=== PATIENT | male | born 1975 | race Caucasian/White ===

== ENCOUNTER 2017-12-15 10:35 | Inpatient (IN) ==
[2017-12-15] MEDS ORDERED: 0.9 % Sodium Chloride 1,000 ML IVC ONE (10:42)
[2017-12-15] MEDS ORDERED: cefTRIAXone 1,000 MG in Water for inj. (sterile) 20 ML 10 ML IVP ONE (10:42)
[2017-12-15] MEDS ORDERED: Pantoprazole 80 MG in 0.9 % Sodium Chloride 50 ML IVPB ONE (10:42)
[2017-12-15] MEDS ORDERED: Octreotide 50 MCG/ML SYRINGE IVP ONE (10:42)
[2017-12-15] MEDS ORDERED: Octreotide 400 MCG in 0.9 % Sodium Chloride 100 ML IVC SCH (10:45)
--- NOTE | 2017-12-15 10:55 | Emergency Department Note ---
Disposition Clinical Impression: Nausea and vomiting Pancreatitis Qualifiers: Chronicity: acute Pancreatitis type: unspecified pancreatitis type Acute pancreatitis complication: unspecified Qualified Code(s): K85.90 - Acute pancreatitis without necrosis or infection, unspecified Disposition: Admitted As Inpatient Condition: Fair Time of Disposition: 13:59 GI Bleed HPI - General Chief complaint: ED GI Bleed Stated complaint: "vomiting blood,bloody stool" Time Seen by Provider: 12/15/17 10:42 Source: patient Mode of arrival: ambulatory Limitations: no limitations Nursing Notes Reviewed: Yes Vital Signs Reviewed: Yes - History of Present Illness HPI Narrative: Patient presents to the ED if the chief complaint of abdominal pain. Patient states he started with left lower quadrant abdominal pain. 3 days ago. Has been sharp, stabbing and crampy. Started having profuse bloody diarrhea last night and into this morning. States that he did have one episode of fecal incontinence today because he could not make it to the bathroom in time. Reports he came to the ER for this and started feeling sick at her stomach went to the bathroom and threw up some pink frothy material that he states may have had blood in it. Denies any history of acid reflux or any NSAID use. No history of diverticulitis in the past. Does not drink heavily. Does smoke. Takes Zoloft, but no other medications. States the pain is localized in his left lower quadrant and has not radiated. No new back pain, but does have chronic back pain from a slipped disc. Has chronic tingling in his legs, but nothing worse than usual. No difficulty with ambulation. No known fevers. No rash, chest pain or shortness breath. - Related Data Home Medications Medication Instructions Recorded Confirmed Sertraline [Zoloft] 100 mg PO DAILY 12/15/17 12/15/17 Previous Rx's Medication Instructions Recorded Gabapentin [Neurontin] 300 mg PO TID #20 capsule 12/30/16 Cyclobenzaprine [Flexeril] 10 mg PO TID PRN #15 tablet 01/22/17 Allergies Allergy/AdvReac Type Severity Reaction Status Date / Time hydrocodone Allergy Hives Verified 12/15/17 10:38 naproxen Allergy Hives Verified 12/15/17 10:38 Sulfa (Sulfonamide Allergy Itching Verified 12/15/17 10:38 Antibiotics) sulfamethoxazole Allergy Itching Verified 12/15/17 10:38 [From Bactrim] tramadol [From Ultram] Allergy Hives Verified 12/15/17 10:38 trimethoprim [From Bactrim] Allergy Itching Verified 12/15/17 10:38 Review of Systems: As reviewed in the HPI. All other systems reviewed are negative or normal. Past Medical History - Past Medical History Attestation: Yes The following information was validated with the patient. Source: patient Medical history: Reports: no medical history Surgical history: Reports: other Psychiatric history: Reports: anxiety, depression - Social History Smoking Status: Current some day smoker Smokeless Tobacco Status: No Alcohol use: Reports: none Drug use: Reports: none Physical Exam - General Limitations: no limitations General appearance: alert, in no apparent distress - Head Head exam: atraumatic, normocephalic, normal inspection - Eye Eye exam: Present: normal appearance, PERRL, EOMI - ENT ENT exam: normal exam, normal oropharynx, mucous membranes moist, other (. No blood in the oropharynx) - Neck Neck exam: Present: normal inspection, full ROM, trachea midline - Chest Chest inspection: Present: normal inspection, symmetric chest wall rise - Respiratory Respiratory exam: Present: normal lung sounds bilaterally - Cardiovascular Cardiovascular exam: Present: regular rate, normal rhythm, normal heart sounds - Abdominal Exam Abdominal exam: Present: soft, tenderness, guarding, hyperactive bowel sounds. Absent: distention, rebound, rigidity Abdominal tenderness: Present: LLQ, moderate, severe - Extremities Exam Extremities exam: Present: normal inspection, full ROM. Absent: tenderness, pedal edema - Neurological Exam Neurological exam: Present: alert, oriented X3 - Psychiatric Psychiatric exam: Present: normal affect, normal mood - Skin Skin exam: Present: warm, dry, intact, normal color Course Course Narrative: Patient presenting with significant left lower quadrant pain. Concerned over perforated diverticulitis due to his abdominal exam. We will get a stat CT abdomen and pelvis without contrast and labs. Patient will be reevaluated. Vitals stable. - Reevaluation(s) Reevaluation #1: CT scan did not show any perforation or diverticulitis. He noted that the pancreas is normal, although I do note some stranding surrounding it. His lipase is elevated. His pain has not been well under control after Dilaudid and is still nauseated. We will admit him to the hospitalist service for pancreatitis. Patient be nothing by mouth. Continue IV fluids. patient refused rectal exam, will await BM which he has NOT had since arrival. No rectal bleeding. Vital Signs Temperature 97.6 F 12/15/17 10:38 Pulse Rate 90 12/15/17 10:38 Respiratory Rate 20 12/15/17 10:38 Blood Pressure 122/84 12/15/17 10:38 O2 Sat by Pulse Oximetry 95 12/15/17 10:38 Temperature 97.6 F 12/15/17 11:16 Pulse Rate 75 12/15/17 13:19 Respiratory Rate 18 12/15/17 13:19 Blood Pressure 123/80 12/15/17 13:19 O2 Sat by Pulse Oximetry 97 12/15/17 13:19 Oxygen Delivery Oxygen Delivery Room Air GI Bleed - Medical Records Medical records reviewed: Yes I reviewed the patient's medical records. - Lab Data Lab results reviewed: Yes I reviewed the patient's lab results. Result diagrams: 12/15/17 11:01 12/15/17 11:01 Lab Results 12/15/17 12/15/17 12/15/17 Range/Units 11:01 11:01 11:01 WBC 10.9 (4.3-11.1) K/mcL RBC 5.02 (4.19-5.50) M/mcL Hgb 16.1 (12.9-16.9) g/dL Hct 44.7 (37.5-50.1) % MCV 89.0 (83.0-100.0) fL MCH 32.1 (28.0-33.3) pg MCHC 36.0 H (31.6-35.5) g/dL RDW 13.0 (11.5-14.5) % Plt Count 188 (140-400) K/mcL MPV 10.8 (9.4-12.4) fL Immature Gran % 0.3 (0-4) % Seg Neutrophils % 69.4 % Lymphocytes % 18.9 % Monocytes % 7.5 % Eosinophils % 3.4 % Basophils % 0.5 % Neutrophils # 7.6 (1.6-8.9) K/mcL Lymphocytes # 2.1 (0.6-4.6) K/mcL Monocytes # 0.8 (0.0-1.3) K/mcL Eosinophils # 0.4 (0.0-0.6) K/mcL Basophils # 0.1 (0.0-0.2) K/mcL PT 9.5 (9.4-12.1) Seconds INR 0.8 APTT 31.8 (26.0-36.0) Seconds Sodium 139 (136-145) mEq/L Potassium 4.3 (3.5-5.1) mEq/L Chloride 106 (98-107) mEq/L Carbon Dioxide 26 (23-29) mEq/L BUN 12 (6-20) mg/dL Creatinine 0.88 (0.70-1.30) mg/dL Est GFR ( Amer) > 60 (> 60) Est GFR (Non-Af Amer) > 60 (> 60) BUN/Creatinine Ratio 14 (6-26) Glucose 120 H (70-105) mg/dL Calculated Osmolality 289 (280-300) Lactic Acid (0.5-2.2) mmol/L Calcium 9.9 (8.6-10.3) mg/dL Total Bilirubin 0.5 (0.3-1.0) mg/dL AST 35 (13-39) Units/L ALT 55 H (7-52) Units/L Alkaline Phosphatase 78 (34-104) Units/L Troponin I < 0.03 (< 0.04) ng/mL Serum Total Protein 7.1 (6.4-8.9) g/dL Albumin 4.6 (3.5-5.7) g/dL Globulin 2.5 (2.4-3.5) g/dL Albumin/Globulin Ratio 1.8 (1.1-2.2) Lipase 388 H (11-82) Units/L Blood Type Antibody Screen 12/15/17 12/15/17 Range/Units 11:01 11:01 WBC (4.3-11.1) K/mcL RBC (4.19-5.50) M/mcL Hgb (12.9-16.9) g/dL Hct (37.5-50.1) % MCV (83.0-100.0) fL MCH (28.0-33.3) pg MCHC (31.6-35.5) g/dL RDW (11.5-14.5) % Plt Count (140-400) K/mcL MPV (9.4-12.4) fL Immature Gran % (0-4) % Seg Neutrophils % % Lymphocytes % % Monocytes % % Eosinophils % % Basophils % % Neutrophils # (1.6-8.9) K/mcL Lymphocytes # (0.6-4.6) K/mcL Monocytes # (0.0-1.3) K/mcL Eosinophils # (0.0-0.6) K/mcL Basophils # (0.0-0.2) K/mcL PT (9.4-12.1) Seconds INR APTT (26.0-36.0) Seconds Sodium (136-145) mEq/L Potassium (3.5-5.1) mEq/L Chloride (98-107) mEq/L Carbon Dioxide (23-29) mEq/L BUN (6-20) mg/dL Creatinine (0.70-1.30) mg/dL Est GFR ( Amer) (> 60) Est GFR (Non-Af Amer) (> 60) BUN/Creatinine Ratio (6-26) Glucose (70-105) mg/dL Calculated Osmolality (280-300) Lactic Acid 1.6 (0.5-2.2) mmol/L Calcium (8.6-10.3) mg/dL Total Bilirubin (0.3-1.0) mg/dL AST (13-39) Units/L ALT (7-52) Units/L Alkaline Phosphatase (34-104) Units/L Troponin I (< 0.04) ng/mL Serum Total Protein (6.4-8.9) g/dL Albumin (3.5-5.7) g/dL Globulin (2.4-3.5) g/dL Albumin/Globulin Ratio (1.1-2.2) Lipase (11-82) Units/L Blood Type A POSITIVE Antibody Screen NEGATIVE - Radiology Data Radiology results reviewed: Yes I reviewed the patient's radiology results. - EKG Data EKG attestation: Yes I reviewed and interpreted this EKG. EKG results narrative: Normal rate, rhythm and axis, no acute ischemic changes S.B.A.R. - S.B.A.R. Situation: Demographics, MOA Background: Presenting Complaint, Relevant PMH, Meds, & Allergies Assessment: Vital Signs, Course and respsone to treatment, Exam Concerns, Patient/Family Expectation, Pertinant Lab Results, Outstanding Labs Recommendation: Barrier(s) to disposition, Recommendation based on pending studies, treatments, or consults Juliet Report Given to: Dr. Kimberly Chung Repor Time: 13:59 Attestation Statement - Attestation Attestation: I, Mg Busch DO, examined this patient [id number] and my medical decision-making was reviewed with Dr. Brooks Harris, Resident Physician. I agree with the documented findings, disposition and treatment plan as described except to the extent set forth below. Please see my progress notes for details.
[2017-12-15] MEDS ORDERED: *HR* HYDROmorphone (PF) 1 MG/ML SYRINGE IVP ONE (11:09)
[2017-12-15] MEDS ORDERED: Ondansetron 4 MG/2 ML VIAL IVP ONE (11:09)
[2017-12-15 11:15] LABS: Basophils # 0.1 K/mcL (0.0-0.2); Basophils % 0.5 %; Eosinophils # 0.4 K/mcL (0.0-0.6); Eosinophils % 3.4 %; Hematocrit 44.7 % (37.5-50.1); Hemoglobin 16.1 g/dL (12.9-16.9); Immature Granulocytes % 0.3 % (0-4); Lymphocytes # 2.1 K/mcL (0.6-4.6); Lymphocytes % 18.9 %; Mean Corpuscular Hemoglobin 32.1 pg (28.0-33.3); Mean Platelet Volume 10.8 fL (9.4-12.4); Monocytes # 0.8 K/mcL (0.0-1.3); Monocytes % 7.5 %; Neutrophils # 7.6 K/mcL (1.6-8.9); Platelet Count 188 K/mcL (140-400); Red Blood Count 5.02 M/mcL (4.19-5.50); Segmented Neutrophils % 69.4 %
[2017-12-15 11:23] LABS: INR 0.8; Prothrombin Time 9.5 Seconds (9.4-12.1)
[2017-12-15 11:25] LABS: Activated Partial Thrombo Time 31.8 Seconds (26.0-36.0)
[2017-12-15 11:33] LABS: Troponin I < 0.03 ng/mL (< 0.04)
[2017-12-15 11:34] LABS: Alanine Aminotransferase 55 Units/L (7-52); Albumin 4.6 g/dL (3.5-5.7); Albumin/Globulin Ratio 1.8 (1.1-2.2); Alkaline Phosphatase 78 Units/L (34-104); Aspartate Amino Transferase 35 Units/L (13-39); BUN/Creatinine Ratio 14 (6-26); Bilirubin,Total 0.5 mg/dL (0.3-1.0); Blood Urea Nitrogen 12 mg/dL (6-20); Calcium 9.9 mg/dL (8.6-10.3); Carbon Dioxide 26 mEq/L (23-29); Chloride 106 mEq/L (98-107); Globulin 2.5 g/dL (2.4-3.5); Glucose 120 mg/dL (70-105); Lipase 388 Units/L (11-82); Osmolality,Calculated 289 (280-300); Potassium 4.3 mEq/L (3.5-5.1); Sodium 139 mEq/L (136-145); Total Protein 7.1 g/dL (6.4-8.9); eGFR For African Americans > 60 (> 60); eGFR For Non-African Americans > 60 (> 60)
--- NOTE | 2017-12-15 13:07 | Emergency Department Note ---
Disposition Clinical Impression: Nausea and vomiting Pancreatitis Qualifiers: Chronicity: acute Pancreatitis type: unspecified pancreatitis type Acute pancreatitis complication: unspecified Qualified Code(s): K85.90 - Acute pancreatitis without necrosis or infection, unspecified Disposition: Admitted As Inpatient Condition: Fair Time of Disposition: 14:17 General Adult HPI - General Chief complaint: ED GI Bleed Stated complaint: N/V Time Seen by Provider: 12/15/17 10:42 Source: patient Mode of arrival: ambulatory Limitations: no limitations - History of Present Illness Pain Scale: 5 - Related Data Home Medications Medication Instructions Recorded Confirmed Sertraline [Zoloft] 100 mg PO DAILY 12/15/17 12/15/17 Previous Rx's Medication Instructions Recorded Gabapentin [Neurontin] 300 mg PO TID #20 capsule 12/30/16 Cyclobenzaprine [Flexeril] 10 mg PO TID PRN #15 tablet 01/22/17 Allergies Allergy/AdvReac Type Severity Reaction Status Date / Time hydrocodone Allergy Hives Verified 12/15/17 10:38 naproxen Allergy Hives Verified 12/15/17 10:38 Sulfa (Sulfonamide Allergy Itching Verified 12/15/17 10:38 Antibiotics) sulfamethoxazole Allergy Itching Verified 12/15/17 10:38 [From Bactrim] tramadol [From Ultram] Allergy Hives Verified 12/15/17 10:38 trimethoprim [From Bactrim] Allergy Itching Verified 12/15/17 10:38 Past Medical History - Past Medical History Medical history: Reports: no medical history Surgical history: Reports: other Psychiatric history: Reports: anxiety, depression - Social History Smoking Status: Current some day smoker Smokeless Tobacco Status: No Alcohol use: Reports: none Drug use: Reports: none Physical Exam - General Limitations: no limitations General appearance: alert, in no apparent distress Course Vital Signs Temperature 97.6 F 12/15/17 10:38 Pulse Rate 90 12/15/17 10:38 Respiratory Rate 20 12/15/17 10:38 Blood Pressure 122/84 12/15/17 10:38 O2 Sat by Pulse Oximetry 95 12/15/17 10:38 Temperature 97.6 F 12/15/17 11:16 Pulse Rate 75 12/15/17 13:19 Respiratory Rate 18 12/15/17 14:14 Blood Pressure 131/76 12/15/17 14:14 O2 Sat by Pulse Oximetry 97 12/15/17 13:19 Oxygen Delivery Oxygen Delivery Room Air Medical Decision Making - Lab Data Result diagrams: 12/15/17 11:01 12/15/17 11:01 Lab Results 12/15/17 12/15/17 12/15/17 Range/Units 11:01 11:01 11:01 WBC 10.9 (4.3-11.1) K/mcL RBC 5.02 (4.19-5.50) M/mcL Hgb 16.1 (12.9-16.9) g/dL Hct 44.7 (37.5-50.1) % MCV 89.0 (83.0-100.0) fL MCH 32.1 (28.0-33.3) pg MCHC 36.0 H (31.6-35.5) g/dL RDW 13.0 (11.5-14.5) % Plt Count 188 (140-400) K/mcL MPV 10.8 (9.4-12.4) fL Immature Gran % 0.3 (0-4) % Seg Neutrophils % 69.4 % Lymphocytes % 18.9 % Monocytes % 7.5 % Eosinophils % 3.4 % Basophils % 0.5 % Neutrophils # 7.6 (1.6-8.9) K/mcL Lymphocytes # 2.1 (0.6-4.6) K/mcL Monocytes # 0.8 (0.0-1.3) K/mcL Eosinophils # 0.4 (0.0-0.6) K/mcL Basophils # 0.1 (0.0-0.2) K/mcL PT 9.5 (9.4-12.1) Seconds INR 0.8 APTT 31.8 (26.0-36.0) Seconds Sodium 139 (136-145) mEq/L Potassium 4.3 (3.5-5.1) mEq/L Chloride 106 (98-107) mEq/L Carbon Dioxide 26 (23-29) mEq/L BUN 12 (6-20) mg/dL Creatinine 0.88 (0.70-1.30) mg/dL Est GFR ( Amer) > 60 (> 60) Est GFR (Non-Af Amer) > 60 (> 60) BUN/Creatinine Ratio 14 (6-26) Glucose 120 H (70-105) mg/dL Calculated Osmolality 289 (280-300) Lactic Acid (0.5-2.2) mmol/L Calcium 9.9 (8.6-10.3) mg/dL Total Bilirubin 0.5 (0.3-1.0) mg/dL AST 35 (13-39) Units/L ALT 55 H (7-52) Units/L Alkaline Phosphatase 78 (34-104) Units/L Troponin I < 0.03 (< 0.04) ng/mL Serum Total Protein 7.1 (6.4-8.9) g/dL Albumin 4.6 (3.5-5.7) g/dL Globulin 2.5 (2.4-3.5) g/dL Albumin/Globulin Ratio 1.8 (1.1-2.2) Lipase 388 H (11-82) Units/L Blood Type Antibody Screen 12/15/17 12/15/17 Range/Units 11:01 11:01 WBC (4.3-11.1) K/mcL RBC (4.19-5.50) M/mcL Hgb (12.9-16.9) g/dL Hct (37.5-50.1) % MCV (83.0-100.0) fL MCH (28.0-33.3) pg MCHC (31.6-35.5) g/dL RDW (11.5-14.5) % Plt Count (140-400) K/mcL MPV (9.4-12.4) fL Immature Gran % (0-4) % Seg Neutrophils % % Lymphocytes % % Monocytes % % Eosinophils % % Basophils % % Neutrophils # (1.6-8.9) K/mcL Lymphocytes # (0.6-4.6) K/mcL Monocytes # (0.0-1.3) K/mcL Eosinophils # (0.0-0.6) K/mcL Basophils # (0.0-0.2) K/mcL PT (9.4-12.1) Seconds INR APTT (26.0-36.0) Seconds Sodium (136-145) mEq/L Potassium (3.5-5.1) mEq/L Chloride (98-107) mEq/L Carbon Dioxide (23-29) mEq/L BUN (6-20) mg/dL Creatinine (0.70-1.30) mg/dL Est GFR ( Amer) (> 60) Est GFR (Non-Af Amer) (> 60) BUN/Creatinine Ratio (6-26) Glucose (70-105) mg/dL Calculated Osmolality (280-300) Lactic Acid 1.6 (0.5-2.2) mmol/L Calcium (8.6-10.3) mg/dL Total Bilirubin (0.3-1.0) mg/dL AST (13-39) Units/L ALT (7-52) Units/L Alkaline Phosphatase (34-104) Units/L Troponin I (< 0.04) ng/mL Serum Total Protein (6.4-8.9) g/dL Albumin (3.5-5.7) g/dL Globulin (2.4-3.5) g/dL Albumin/Globulin Ratio (1.1-2.2) Lipase (11-82) Units/L Blood Type A POSITIVE Antibody Screen NEGATIVE Attestation Statement - Attestation Attestation: I, Mg Busch DO, examined this patient [id number] and my medical decision-making was reviewed with Dr. Brooks Harris, Resident Physician. I agree with the documented findings, disposition and treatment plan as described except to the extent set forth below. Please see my progress notes for details. 41-year-old male presents emergency room with complaint of epigastric and left lower quadrant abdominal pain. Patient has had these symptoms on and off for several days. The pain has been progressively getting worse. Denies any chest pain shortness of breath headache vision changes nausea vomiting. He has had profuse diarrhea one episode of hemoptysis and one episode of hematochezia here today. Patient denies any fevers at home. He has not had any other history like this in the past. He is not on any blood thinners. Vital signs reviewed and are stable patient is alert he is oriented. He has not had any episodes of emesis while here in the department. His lungs are clear his heart is regular abdomen is soft. Eyes have tenderness across the epigastrium down the left lower quadrant of the abdomen. Denies any history of alcohol abuse. He does smoke. EKG labs including chest x-ray CBC chemistry troponin and BNP of the liver function testing and urinalysis will be resulted. CT imaging the abdomen is ordered with concern for possible diverticular disease or productive diverticulum. Patient will be provided with fluids and pain medications here in the emergency room his treatment course is established. Physical exam is otherwise unremarkable as discussed above. Patient's disposition will be determined. See detailed documentation of the physical exam, medical intervention, medical decision-making and disposition in the resident physician' s note. No critical care by the patient's treatment course at this time. 1300 Patient has elevated lipase. The remainder of his labs are unremarkable. Patient's vital signs otherwise stable still. CT does not show any acute signs of diverticulitis or diverticular disease. There is inflammation the upper part of the abdomen which is consistent with the elevated lipase and pancreatitis. Patient will have symptomatically control completed in discussion of disposition. 1335 Patient does have nondescript inflammation the upper aspect the abdomen. He has had persistent pain. He does have an elevated lipase as it is consistent with pancreatitis. Patient has not been able to tolerate anything by mouth here today. He does not have any acute signs of diverticular disease or diverticulitis. He has not had any blood in the stool wall here. Patient will be admitted for symptomatic control repeat evaluations in stool evaluation if he has a bowel movement. 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 No other recommendations or concerns this time. Nothing by mouth status has been established
--- NOTE | 2017-12-15 15:35 | Internal Med History&Physical ---
Date of Encounter: 12/15/17 Time of Encounter: 15:35 Internal Medicine - H&P: HPI History of present illness: Patient presents to the ED if the chief complaint of abdominal pain. Patient states he started with left lower quadrant abdominal pain. 3 days ago. Has been sharp, stabbing and crampy. Started having profuse bloody diarrhea last night and into this morning. States that he did have one episode of fecal incontinence today because he could not make it to the bathroom in time. Reports he came to the ER for this and started feeling sick at her stomach went to the bathroom and threw up some pink frothy material that he states may have had blood in it. Denies any history of acid reflux or any NSAID use. No history of diverticulitis in the past. Does not drink heavily. Does smoke. Takes Zoloft, but no other medications. States the pain is localized in his left lower quadrant and has not radiated. No new back pain, but does have chronic back pain from a slipped disc. Has chronic tingling in his legs, but nothing worse than usual. No difficulty with ambulation. No known fevers. No rash, chest pain or shortness breath. Past Med Surg Social Fam HX - Past Medical History Medical history: no medical history Additional medical history: back pain Psychiatric history: anxiety, depression - Past Surgical History Surgical History: orthopedic, other, tonsilectomy Additional surgical history: right hand and shoulder surgery - Social History Smoking Status: Current some day smoker Packs per day: 2 Smokeless Tobacco Status: No Alcohol use: none Drug use: none - Family History Mother Hx Family Endocrine Disorder: Yes (DM) Internal Medicine - H&P: Meds Gabapentin [Neurontin] 300 mg PO TID #20 capsule 12/30/16 [Rx] Cyclobenzaprine [Flexeril] 10 mg PO TID PRN #15 tablet 01/22/17 [Rx] Sertraline [Zoloft] 100 mg PO DAILY 12/15/17 [History] 3 Allergy/AdvReac Type Severity Reaction Status Date / Time hydrocodone Allergy Hives Verified 12/15/17 10:38 naproxen Allergy Hives Verified 12/15/17 10:38 Sulfa (Sulfonamide Allergy Itching Verified 12/15/17 10:38 Antibiotics) sulfamethoxazole Allergy Itching Verified 12/15/17 10:38 [From Bactrim] tramadol [From Ultram] Allergy Hives Verified 12/15/17 10:38 trimethoprim [From Bactrim] Allergy Itching Verified 12/15/17 10:38 All Systems PM: A 10-system review of systems was performed and is negative for pertinent findings except as documented above in the HPI. - Constitutional Vitals: Temp Pulse Resp BP Pulse Ox 97.5 F L 79 15 117/75 96 12/15/17 15:27 12/15/17 15:27 12/15/17 15:27 12/15/17 15:27 12/15/17 15:27 Internal Med - H&P Results - Labs CBC & Chem 7: 12/15/17 11:01 12/15/17 11:01 - Assessment and plan (1) Lower gastrointestinal bleeding Current Visit: Yes Status: Acute Assessment and plan: ASSESSMENT: - GI bleeding DD *Gastroenteritis *Gastritis *PUD *Hemorrhoids *Divericulitis *IBD PLAN: - IVF - NPO - H/H now and q 8 hr - Type and screen 2 U PRBC - Protonix 40 mg IV QD/BID - GI consult-> EGD/Colonoscopy - Octeotride 50 mcg IV bolus & then 50 mcg/hr IV drip - O2 to keep SpO2 > 92% - CBCD, BMP, INR/PTT in AM - (2) Pancreatitis Current Visit: Yes Status: Acute Assessment and plan: ASSESSMENT: - Abdominal pain due to *Pancreatitis PLAN: - NPO apart from meds - IVF, NS at 125 cc/hr x 2 L - EKG in AM - Urine C+S - Morphine 2 mg IV q 2-4 hr PRN pain - Liver/gallbladder U/S - GI consult - CBCD, CMP in AM Qualifiers: Chronicity: acute Pancreatitis type: unspecified pancreatitis type Acute pancreatitis complication: unspecified Qualified Code(s): K85.90 - Acute pancreatitis without necrosis or infection, unspecified (3) Depression Current Visit: Yes Status: Acute (4) Smoking Current Visit: Yes Status: Acute (5) DVT prophylaxis Current Visit: Yes Status: Acute Assessment and plan: Compression stocking BLE for DVT prophylaxis - Time Spent With Patient Total time spent is greater than 50% in coordination of care (as documented) at patient's floor/unit and/or counseling patient:
[2017-12-15] MEDS ORDERED: *HR* HYDROcodone/Acet 5/325 mg TABLET PO PRN (15:52)
[2017-12-15] MEDS ORDERED: Naloxone 0.4 MG/ML INJ IVP PRN ×2 (15:52)
[2017-12-15] MEDS ORDERED: Acetaminophen 325 MG TABLET PO PRN (15:52)
[2017-12-15 17:08] LABS: Bilirubin,Urine Negative (Negative); Blood,Urine Negative (Negative); Clarity,Urine Clear (Clear); Color,Urine Yellow (Yellow); Glucose,Urine (UA) Normal (Normal); Ketones,Urine Negative (Negative); Leukocyte Esterase,Urine Negative (Negative); Nitrite,Urine Negative (Negative); Protein,Urine Negative (Neg-Trace); Specific Gravity,Urine 1.018 (1.010-1.025); Urobilinogen,Urine Normal (Normal)
--- NOTE | 2017-12-15 17:51 | Electrocardiograph Report ---
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
[2017-12-15] MEDS: Nicotine 21 MG PATCH.TD24 TD SCH (18:26)
[2017-12-15] MEDS: 0.9 % Sodium Chloride 1,000 ML IVC SCH (18:37)
[2017-12-15] MEDS: *HR* OxyCODONE/APAP 5/325 TABLET PO PRN (20:45)
[2017-12-15] MEDS: Gabapentin 300 MG CAPSULE PO SCH (20:46)
[2017-12-16] MEDS: Octreotide 400 MCG in 0.9 % Sodium Chloride 100 ML IVC SCH ×2 (02:11→08:59)
[2017-12-16 04:44] LABS: Hematocrit 43.3 % (37.5-50.1); Hemoglobin 15.2 g/dL (12.9-16.9); Mean Corpuscular HGB Conc 35.1 g/dL (31.6-35.5); Mean Corpuscular Hemoglobin 31.5 pg (28.0-33.3); Mean Corpuscular Volume 89.8 fL (83.0-100.0); Mean Platelet Volume 11.3 fL (9.4-12.4); Platelet Count 155 K/mcL (140-400); Red Blood Count 4.82 M/mcL (4.19-5.50); Red Cell Distribution Width 13.2 % (11.5-14.5)
[2017-12-16 04:51] LABS: INR 0.9; Prothrombin Time 10.6 Seconds (9.4-12.1)
[2017-12-16 04:55] LABS: Activated Partial Thrombo Time 30.4 Seconds (26.0-36.0)
[2017-12-16 05:02] LABS: Alanine Aminotransferase 41 Units/L (7-52); Albumin 4.1 g/dL (3.5-5.7); Albumin/Globulin Ratio 1.8 (1.1-2.2); Alkaline Phosphatase 74 Units/L (34-104); Aspartate Amino Transferase 27 Units/L (13-39); BUN/Creatinine Ratio 15 (6-26); Bilirubin,Total 0.7 mg/dL (0.3-1.0); Blood Urea Nitrogen 13 mg/dL (6-20); Calcium 8.8 mg/dL (8.6-10.3); Carbon Dioxide 24 mEq/L (23-29); Chloride 106 mEq/L (98-107); Chol/HDL Ratio 5.3 (0-4.9); Cholesterol 168 mg/dL (< 200); Globulin 2.3 g/dL (2.4-3.5); Glucose 100 mg/dL (70-105); HDL Cholesterol 32 mg/dL (40-59); LDL Cholesterol,Calculated 97 mg/dL (0-99); Magnesium 1.8 mg/dL (1.6-2.6); Osmolality,Calculated 286 (280-300); Phosphorous 3.6 mg/dL (2.7-4.5); Sodium 138 mEq/L (136-145); Total Protein 6.4 g/dL (6.4-8.9); Triglycerides 193 mg/dL (< 150); eGFR For African Americans > 60 (> 60); eGFR For Non-African Americans > 60 (> 60)
[2017-12-16] MEDS: 0.9 % Sodium Chloride 1,000 ML IVC SCH (05:06)
[2017-12-16] MEDS: Pantoprazole 40 MG VIAL IVP SCH ×2 (05:07→17:35)
[2017-12-16] MEDS: *HR* OxyCODONE/APAP 5/325 TABLET PO PRN ×3 (06:47→18:34)
[2017-12-16] MEDS: Nicotine 21 MG PATCH.TD24 TD SCH (07:30)
[2017-12-16] MEDS: Gabapentin 300 MG CAPSULE PO SCH ×2 (07:31→21:20)
[2017-12-16] MEDS ORDERED: cefTRIAXone 1,000 MG in Water for inj. (sterile) 20 ML 10 ML IVP SCH (09:00)
--- NOTE | 2017-12-16 11:57 | Internal Med Progress Note ---
Date of Encounter: 12/16/17 Time of Encounter: 10:30 - Assessment and plan (1) Pancreatitis Current Visit: Yes Status: Acute Assessment and plan: elevated lipase but abdominal pain is not characteristic and CT is -ve US also -ve for any biliary/pancreatic pathology Triglyceride 193 which would not typically cause pancreatitis Denies any EtOH ingestion, LFT not suggestive of EtOH hepatitis unclear whether he has had true pancreatitis, would advance diet today and monitor IVF, pain mx If tolerating it well, d/c tomorrow Qualifiers: Chronicity: acute Pancreatitis type: unspecified pancreatitis type Acute pancreatitis complication: unspecified Qualified Code(s): K85.90 - Acute pancreatitis without necrosis or infection, unspecified (2) GI bleed Current Visit: Yes Status: Acute Assessment and plan: reports hx of melena/hematochezia x 4 episodes as well as 1 episode of hematemesis but none so far during his stay hemodynamically stable, Hb 15+ Check FOBT d/c octreotide in the absence of cirrhosis trial of PPI, outpatient scope Qualifiers: GI bleed type/associated pathology: unspecified gastrointestinal hemorrhage type Qualified Code(s): K92.2 - Gastrointestinal hemorrhage, unspecified (3) Depression Current Visit: Yes Status: Acute Assessment and plan: continue home meds Qualifiers: Depression Type: unspecified Qualified Code(s): F32.9 - Major depressive disorder, single episode, unspecified (4) Smoking Current Visit: Yes Status: Acute Assessment and plan: counseling on smoking cessation nicotine replacement therapy (5) DVT prophylaxis Current Visit: Yes Status: Acute Assessment and plan: scds - Time Spent With Patient Total time spent is greater than 50% in coordination of care (as documented) at patient's floor/unit and/or counseling patient: - Subjective Interval history: still complaining of epigastric/LUQ pain but not as severe. Would like to try some liquids today. No further episodes of melena, hematochezia, or hematemesis. Denies significant EtOH ingestion. - Constitutional Vitals: Temp Pulse Resp BP Pulse Ox 98.2 F 77 16 129/81 97 12/16/17 11:46 12/16/17 11:46 12/16/17 11:46 12/16/17 11:46 12/16/17 11:46 Exam: General: Alert and oriented Eyes: No jaundice Cardiovascular:Normal S1 & S2, no murmurs or gallops. No JVD. Pulse regular. Lungs:Normal breath sounds, no wheezes or crackles. Abdomen:Soft, LUQ/epigastric tenderness without rebound/guarding. CATHY: brown stool Extremities:No deformity, no edema or tenderness, no joint swelling. Rest of the physical exam is non-contributory Internal Medicine: Result - Labs CBC & Chem 7: 12/16/17 03:36 12/16/17 03:36 Labs: Short CBC 12/16/17 Range/Units 03:36 WBC 8.0 (4.3-11.1) K/mcL Hgb 15.2 (12.9-16.9) g/dL Hct 43.3 (37.5-50.1) % Plt Count 155 (140-400) K/mcL BMP 12/16/17 03:36 Sodium 138 Potassium 4.0 Chloride 106 Carbon Dioxide 24 BUN 13 Creatinine 0.88 Glucose 100 Calcium 8.8 Liver Function 12/16/17 Range/Units 03:36 Total Bilirubin 0.7 (0.3-1.0) mg/dL AST 27 (13-39) Units/L ALT 41 (7-52) Units/L Alkaline Phosphatase 74 (34-104) Units/L Albumin 4.1 (3.5-5.7) g/dL - ABG Interpretation ABG results: PT/INR, D-dimer PT 10.6 Seconds (9.4-12.1) 12/16/17 03:36 - Impressions Impressions Abdomen Ultrasound 12/15/17 20:00 IMPRESSION: 1. Negative for cholelithiasis or acute cholecystitis. 2. No evidence of biliary obstruction. 3. No evidence of ascites. D/ / 12/15/2017 22:34:14 Misbah Paulino MD / chandler Interpreting Provider: Misbah Paulino MD Consult Discharge Plan - Plan Referrals: NONE,PCP [Primary Care Provider] -
[2017-12-16] MEDS: Ringers Solution, Lactated 1,000 ML IVC SCH ×2 (12:25→21:20)
[2017-12-17] MEDS: *HR* OxyCODONE/APAP 5/325 TABLET PO PRN ×2 (00:56→07:48)
[2017-12-17 02:15] LABS: Basophils % 0.2 %; Eosinophils # 0.2 K/mcL (0.0-0.6); Eosinophils % 3.1 %; Hematocrit 36.8 % (37.5-50.1); Immature Granulocytes % 0.2 % (0-4); Lymphocytes % 30.5 %; Mean Corpuscular HGB Conc 35.1 g/dL (31.6-35.5); Mean Corpuscular Hemoglobin 31.1 pg (28.0-33.3); Mean Corpuscular Volume 88.7 fL (83.0-100.0); Mean Platelet Volume 10.9 fL (9.4-12.4); Monocytes # 0.6 K/mcL (0.0-1.3); Monocytes % 8.7 %; Neutrophils # 3.7 K/mcL (1.6-8.9); Platelet Count 144 K/mcL (140-400); Red Blood Count 4.15 M/mcL (4.19-5.50); Red Cell Distribution Width 12.9 % (11.5-14.5); Segmented Neutrophils % 57.3 %
[2017-12-17 02:22] LABS: Hemoglobin 12.9 g/dL (12.9-16.9)
[2017-12-17 02:28] LABS: BUN/Creatinine Ratio 14 (6-26); Blood Urea Nitrogen 11 mg/dL (6-20); Calcium 8.5 mg/dL (8.6-10.3); Carbon Dioxide 24 mEq/L (23-29); Chloride 106 mEq/L (98-107); Glucose 118 mg/dL (70-105); Osmolality,Calculated 282 (280-300); Potassium 3.6 mEq/L (3.5-5.1); Sodium 136 mEq/L (136-145); eGFR For African Americans > 60 (> 60); eGFR For Non-African Americans > 60 (> 60)
[2017-12-17] MEDS: Ringers Solution, Lactated 1,000 ML IVC SCH (05:33)
[2017-12-17] MEDS: Pantoprazole 40 MG VIAL IVP SCH (05:34)
[2017-12-17] MEDS: Nicotine 21 MG PATCH.TD24 TD SCH (07:46)
[2017-12-17] MEDS: Gabapentin 300 MG CAPSULE PO SCH (07:48)
[2017-12-17 10:46] VITALS: BP 131/76
--- NOTE | 2017-12-17 10:55 | Discharge Summary ---
- NOTES TO OUTPATIENT PROVIDER Notes to Outpatient Provider: admitted for questionable pancreatitis and GI bleed. hemodynamically stable with stable count. Lipase 300s but CT -ve for pancreatic edema, US also -ve for any GB or biliary pathology. Triglyceride normal. No episodes of bleeding inpatient. Improved with symptomatic mx but will need to follow up with GI for both possible scope and ?dx of pancreatitis. Date of Encounter: 12/17/17 Time of Encounter: 09:10 - Discharge Diagnosis (1) Pancreatitis Priority: Primary Status: Acute Qualifiers: Chronicity: acute Pancreatitis type: unspecified pancreatitis type Acute pancreatitis complication: unspecified Qualified Code(s): K85.90 - Acute pancreatitis without necrosis or infection, unspecified (2) GI bleed Priority: Secondary Status: Acute Qualifiers: GI bleed type/associated pathology: unspecified gastrointestinal hemorrhage type Qualified Code(s): K92.2 - Gastrointestinal hemorrhage, unspecified (3) Depression Priority: Secondary Status: Acute Qualifiers: Depression Type: unspecified Qualified Code(s): F32.9 - Major depressive disorder, single episode, unspecified (4) Smoking Priority: Secondary Status: Acute (5) DVT prophylaxis Priority: Secondary Status: Acute Hospital course: Mr. López is a 42 year old male with no significant past medical history presented with a chief complaint of abdominal pain. Also endorsed questionable melena x 2. No history of EtOH abuse. Lipase mildly elevated at [address] -ve for pancreatic pathology and US also -ve for GB or biliary pathology. Triglyceride normal. Was managed conservatively with IVF, PPI, bowel rest with symptomatic relief. No further episodes of melena. He is to be discharged on if he tolerates his meals well with GI follow up for ?pancreatitis and outpatient EGD. Discharge discussed with: patient - Time Spent with Patient Total time spent providing and/or coordinating discharge services: Greater than 30 minutes - Discharge Medications Prescriptions: OxyCODONE/APAP 5/325 [Percocet 5/325 MG] 1 each PO Q6HR PRN 4 Days #16 tablet PRN Reason: Pain Pantoprazole Sodium [Protonix] 40 mg PO DAILY 30 Days #30 tablet.dr Sanabria Medications: Gabapentin [Neurontin] 300 mg PO TID #20 capsule 12/30/16 [Rx] Cyclobenzaprine [Flexeril] 10 mg PO TID PRN #15 tablet 01/22/17 [Rx] Sertraline [Zoloft] 100 mg PO DAILY 12/15/17 [History] OxyCODONE/APAP 5/325 [Percocet 5/325 MG] 1 each PO Q6HR PRN 4 Days #16 tablet [Rx] Pantoprazole Sodium [Protonix] 40 mg PO DAILY 30 Days #30 tablet. 12/17/17 [Rx ] Allergies/Adverse Reactions: 3 Allergy/AdvReac Type Severity Reaction Status Date / Time hydrocodone Allergy Hives Verified 12/15/17 10:38 naproxen Allergy Hives Verified 12/15/17 10:38 Sulfa (Sulfonamide Allergy Itching Verified 12/15/17 10:38 Antibiotics) sulfamethoxazole Allergy Itching Verified 12/15/17 10:38 [From Bactrim] tramadol [From Ultram] Allergy Hives Verified 12/15/17 10:38 trimethoprim [From Bactrim] Allergy Itching Verified 12/15/17 10:38 Date of admission: 12/17/17 10:14 Primary care physician: PCP NONE - Constitutional Vitals: Temp Pulse Resp BP Pulse Ox 98.1 F 77 15 131/76 97 12/17/17 10:23 12/17/17 10:23 12/17/17 10:23 12/17/17 10:23 12/17/17 10:23 Exam: General: Alert and oriented Eyes: No jaundice Cardiovascular:Normal S1 & S2, no murmurs or gallops. No JVD. Pulse regular. Lungs:Normal breath sounds, no wheezes or crackles. Abdomen:Soft, improving LUQ/epigastric tenderness without rebound/guarding Extremities:No deformity, no edema or tenderness, no joint swelling. Rest of the physical exam is non-contributory - Patient Status Disposition: Home, Self-Care Condition: Fair Overall status at discharge: patient is progressing back to baseline - Discharge Instructions Instructions: Pancreatitis (DC) Follow Up With: NONE,PCP [Primary Care Provider] - - Diet and Activity Activity: resume usual activities as tolerated Diet: advance to your usual diet - VTE Reasons for not Prescribing Prophylaxis: Treatment not Indicated - Low risk for VTE
== END 2017-12-17 12:45 | disposition home or self-care (01) | DRG 439 ==
LOC: EMEROO 10:35 → 3ANU 10:35 → SUATTDRO 13:58 → 3ANU 14:08
PROVIDERS: ADMIT Internal Medicine; ATTEND Internal Medicine